=== PATIENT | male | born 1955 | race Hispanic/Latino ===

== ENCOUNTER 2016-06-16 20:44 | Inpatient (IN) ==
[2016-06-16] MEDS ORDERED: ZOFRAN ONE (21:17)
[2016-06-16] MEDS ORDERED: NS 1,000 ML ONE (21:17)
[2016-06-16 21:33] LABS: BE 2.4 mmoll (-3.0-3.0); BLOOD TYPE ARTERIAL; DRAW SITE R RADIAL; METHB 0.4 % (0.0-1.5); O2(CT) 18.8 mL/dL (15.0-23.0); PCO2(98.6) 38 mmHg (35-45); PO2(98.6) 61 mmHg (60-100); SAMPLE BLOOD; SAO2 93.2 % (95.0-100.0); THB 14.5 g/dL (11.5-17.4); pH(98.6) 7.45 (7.35-7.45)
--- NOTE | 2016-06-16 21:35 | EKG Report ---
Test Performed on : 06/16/2016 9:20:22 PM Test Reason : CHEST PAIN Blood Pressure : / mmHG Vent. Rate : 111 BPM Atrial Rate : 111 BPM P-R Int : 152 ms QRS Dur : 126 ms QT Int : 366 ms P-R-T Axes : 054 146 015 degrees QTc Int : 497 ms Sinus tachycardia. Right bundle branch block Abnormal ECG No previous ECGs available Unconfirmed Result
[2016-06-16 21:36] LABS: ALLEN TEST YES; MODALITY ROOM AIR
[2016-06-16] MEDS ORDERED: NS 1,000 ML IV ONE (21:37)
[2016-06-16] MEDS ORDERED: HUMULIN R DOSE (PARKWAY) IV ONE (21:37)
[2016-06-16] MEDS ORDERED: ZOFRAN IV ONE ×2 (21:37→21:59)
[2016-06-16 21:51] LABS: MANUAL DIFF NEEDED? NO
[2016-06-16 21:59] LABS: HEMATOCRIT 44.2 % (42.0-52.0); HEMOGLOBIN 15.2 g/dL (14.0-18.0); MCH 29.9 PG (27-31); RBC 5.08 XMIL (4.7-6.1)
[2016-06-16 22:00] LABS: BASO% 0.1 % (0.0-0.8); IMM GRAN# 0.03 X1000 (0.0-0.04); IMM GRAN% 0.2 % (0.0-0.5); LYMPH# 0.51 X1000 (1.2-3.4); LYMPH% 3.2 % (20.5-51.1); MCHC 34.4 g/dL (33-37); MONO# 0.02 X1000 (0.11-0.59); MONO% 0.1 % (1.7-9.3); MPV 10.5 FL (7.4-10.4); NEUT% 96.4 % (42.2-75.2); PLT 307 X1000 (130-400)
[2016-06-16 22:01] LABS: URINE SOURCE CLEAN CATCH
[2016-06-16 22:14] LABS: UR AMPHETAMINES QUAL NONE DETECTED (NONE DETECT); UR BARBITUATES QUAL NONE DETECTED (NONE DETECT); UR BENZODIAZEPIN QUAL NONE DETECTED (NONE DETECT); UR CANNABINOIDS QUAL NONE DETECTED (NONE DETECT); UR COCAINE QUAL NONE DETECTED (NONE DETECT); UR MDMA QUAL NONE DETECTED (NONE DETECT); UR METHADONE QUAL NONE DETECTED (NONE DETECT); UR METHAMPHETAMINE QUAL NONE DETECTED (NONE DETECT); UR OPIATES QUAL NONE DETECTED (NONE DETECT); UR OXYCODONE QUAL NONE DETECTED (NONE DETECT); UR PCP QUAL NONE DETECTED (NONE DETECT); UR TCA QUAL NONE DETECTED (NONE DETECT)
[2016-06-16 22:19] LABS: INR 0.88 (0.86-1.15); PROTIME 12.3 Seconds (12.1-15.5); PTT PL 21.4 Seconds (22.6-43.9)
[2016-06-16 22:24] LABS: ACETONE SERUM NEGATIVE (NEGATIVE)
[2016-06-16 22:25] LABS: AGAP 11; ALBUMIN 3.5 g/dL (3.5-5.0); ALKALINE PHOSPHATASE 198 U/L (32-122); BUN 19 mg/dL (8-22); CALCIUM 8.1 mg/dL (8.8-10.2); CHLORIDE 100 mmol/L (98-107); CK PROFILE 33 U/L (24-204); COSMO 287; GOT 46 U/L (10-34); GPT 58 U/L (10-44); MAGNESIUM 1.9 mg/dL (1.5-2.7); POTASSIUM 3.3 mmol/L (3.5-5.1); SODIUM 136 mmol/L (136-145); TCO2 25 mmol/L (25-35); TOTAL PROTEIN 5.9 g/dL (6.3-8.3)
[2016-06-16 22:36] LABS: BILIRUBIN URINE NEGATIVE (NEGATIVE); BLOOD URINE NEGATIVE (NEGATIVE); CLARITY CLEAR (CLEAR); COLOR YELLOW; LEUKOCYTES URINE TRACE (NEGATIVE); NITRITE URINE NEGATIVE (NEGATIVE); PH URINE 6.5; PROTEIN URINE 1+(30 mg/dL) mg/dL (NEGATIVE); UROBILINOGEN URINE NORMAL
[2016-06-16 22:41] LABS: URINE CULTURE PL NEEDED? YES; URINE EPITHELIAL CELLS <10 /HPF (<10); URINE WBC <10 /HPF (<10)
[2016-06-17] MEDS ORDERED: NS 1,000 ML IV ONE ×2 (00:31→20:47)
[2016-06-17] MEDS ORDERED: ZOFRAN IV PRN (00:31)
[2016-06-17] MEDS ORDERED: ZOSYN 3.375 GM/NS 3.375 GM/50 ML IVPB IV ONE (00:31)
--- NOTE | 2016-06-17 01:54 | ED EKG INTERP ---
This chart was entered by Kae Yin Scribe, acting as scribe for Yuriy Rm DO. EKG Interpretation - EKG Time of EKG reading by physician:: 21:20 EKG Read and Signed by:: Yuriy Rm EKG Interpretation (*Must complete 3 of following elements*): Abnormal Rate: 111 Rhythm: st [place]: normal QRS: RBB AR Interval: normal ST Wave: normal Attestation - Physician/ TAMRA Attestation The physician spent face to face time with patient:: Yes Advanced Practice Provider documentation review:: The physician spent face to face time with this patient and agrees with all MLP documentation, treatment, and medical decision making by the MLP. See provider notes for further information. This chart was documented by the indicated scribe, (Kae Yin Scribe) and accurately reflects the services I performed and decisions made by , Yuriy Rm DO, as attested by the provider's signature.
--- NOTE | 2016-06-17 01:55 | PROVIDER DOCUMENTATION ---
This chart was entered by Kae Yin Scribe, acting as scribe for Yuriy Rm DO. HPI-Abdominal Pain/GI Problem - General Chief Complaint: Nausea/Vomiting Stated Complaint: HIGH SUGAR/VOMITING Time Seen by Provider: 06/16/16 21:12 Source: patient, family Allergies/Adverse Reactions: Patient Allergies Allergy/AdvReac Type Severity Reaction Status Date / Time No Known Allergies Allergy Verified 06/16/16 20:50 - History of Present Illness-ABD Nature of Presenting Problems: PT IS A 60YOM PRESENTING TO THE ED C/O N/V/ABD PAIN. PT STATES HE BEGAN VOMITING AROUND 1700 THIS EVENING AND HAVING ABD PAIN. PT IS A DIABETIC AND HIS BLOOD SUGAR IS ABOVE 300 DUE TO VOMITING. NO DIARRHEA OR FEVER AT THIS TIME BUT PT IS LETHARGIC AND HAVING A HARD TIME STAYING AWAKE. NO OTHER COMPLAINTS AT THIS TIME Abdominal Pain Onset Location: reports: generalized abdomen Pain Radiation: reports: no radiation Quality of Pain: reports: aching Severity in ED: reports: moderate Onset/Duration: reports: 4-6 hours ago Timing: reports: still present Activities at Onset: reports: light activity Modifying Factors: improves with: nothing Associated Symptoms: reports: fatigue, malaise, nausea, vomiting, weakness. denies: constipation, diarrhea, shortness of breath, trouble walking Last BM: unsure Dark Stools Present?: reports: none noticed Rectal Bleeding: reports: none Rectal Pain: reports: none Emesis Description: reports: none Bruising or Bleeding Gums?: No Similar Symptoms Previously?: No Recently seen or treated by another doctor?: No Review of Systems - Adult - REVIEW OF SYSTEMS - ADULT Constitutional: reports: see HPI, fever, fatique. denies: chills Eyes: reports: no symptoms reported Ears, Nose, Mouth & Throat: reports: no symptoms reported Cardiovascular: reports: no symptoms reported Respiratory: reports: no symptoms reported Gastrointestinal: reports: see HPI, abdominal pain, nausea, poor appetite, vomiting. denies: constipation, diarrhea Genitourinary: reports: no symptoms reported Musculoskeletal: reports: no symptoms reported Integumentary: reports: no symptoms reported Neurological: reports: no symptoms reported Psychiatric: reports: no symptoms reported Endocrine: reports: no symptoms reported Hematologic/Lymphatic: reports: no symptoms reported Allergic/Immunologic: reports: no symptoms reported All Other Systems: Reviewed and Negative Past History - Adult - PAST MEDICAL HISTORY-ADULT Review of Records: reports: Old Records Reviewed, Nursing Assessment Review, Medications Reviewed, Social history reviewed & non-contributory. Major Childhood Illnesses: reports: denies history Cardiovascular: reports: denies history Respiratory: reports: denies history Gastrointestinal: reports: denies history Obstetrical/Gynecological: reports: denies history Genitourinary: reports: denies history Musculoskeletal: reports: denies history Neurological: reports: denies history Endocrine/Immune: reports: denies history Other Conditions: reports: denies history - IMMUNIZATION STATUS Childhood Immunizations: See Nurse Assessment Flu Vaccine: See Nurse Assessment - FAMILY HISTORY Family History: reviewed, not pertinent - SOCIAL HISTORY Smoking: denies, non-smoker Substance Use: none/never, denies Alcohol Use Frequency: never Living Situation: family Physical Exam-General - PHYSICAL EXAM-ADULT Initial Vital Signs Reviewed: Yes - CONSTITUTIONAL General Appearance: alert, moderate distress, thin, lethargic. negative: appears well, no apparent distress - EYES Eyes: PERRL/EOMI, pink conjunctivae, fundi clear, no AV nicking - HEAD, EARS, NOSE, MOUTH & THROAT HENMT: normocephalic/atraumatic, moist mucous membranes, normal ENT inspection, TMs normal, pharynx normal - NECK Neck: non-tender, full range of motion, supple, normal inspection - RESPIRATORY Respiratory: chest non-tender, lungs clear, normal breath sounds, no pleuratic chest pain, no respiratory distress, no accessory muscle use - CARDIOVASCULAR Cardiovascular: normal peripheral pulses, no edema, no gallop, no JVD, no murmur , tachycardia. negative: regular rate, rhythm - GASTROINTESTINAL (ABDOMEN) Abdominal Exam: normal bowel sounds, soft, no organomegaly, no pulsatile mass, tenderness. negative: non tender, guarding, rigid - LYMPHATIC Lymphatic: no adenopathy - MUSCULOSKELETAL Back Exam: normal inspection, no CVA tenderness, no vertebral tenderness Extremity: normal range of motion, non-tender, normal gait, normal inspection, no pedal edema, no calf tenderness, normal capillary refill, pelvis stable - SKIN Integumentary: normal color, normal turgor, warm/dry - NEUROLOGIC Neurologic: asbestos coverer II-XII nml as tested, grossly normal, no motor/sensory deficits - PSYCHIATRIC Psych/Mental Status: normal thought content, normal thought process, oriented x 3, depressed affect Progress - PLAN OF CARE/RESULTS Progress/Plan/Lab Results: Vital Signs - 8 hr 06/16/16 20:50 Temperature 99.6 F Pulse Rate 114 H Respiratory Rate 20 Blood Pressure 099/057 O2 Sat by Pulse Oximetry 96 Laboratory Results - last 24 hr 06/16/16 21:17 Specimen Type ARTERIAL Sample Site R RADIAL pH 7.45 pCO2 38 pO2 61 HCO3 26.6 H Base Excess 2.4 Oxyhemoglobin 92.1 L ABG O2 Sat (Calculated) 18.8 ABG O2 Saturation 93.2 L ABG Carboxyhemoglobin 0.80 ABG Methemoglobin 0.4 Jose Test YES A-a O2 Difference 41.0 Total Hemoglobin 14.5 Lactate 1.20 Blood Gas Modality ROOM AIR FiO2 % 21.0 Orders Category Date Time Status Cardiac Monitoring DIRECTED Care 06/16/16 21:15 Active FSBS [Finger Stick Blood Sugar (ED)] DIRECTED Care 06/16/16 20:58 Active Oxygen Therapy- ED Nursing DIRECTED Care 06/16/16 21:15 Active Saline Loc NOW Care 06/16/16 21:15 Active CHEST-2 VIEWS [RAD] Stat Exams 06/16/16 21:[address] ABD/PELVIS W/ IV CONT ONLY [CT] Stat Exams 06/16/16 21:28 Ordered ABG [RESP] Routine Lab 06/16/16 21:17 Completed ACETONE SERUM [CHEM] Stat Lab 06/16/16 21:16 Ordered ALCOHOL BLOOD Stat Lab 06/16/16 21:16 Ordered CBC WITH ELECTRONIC DIFF [HEME] Stat Lab 06/16/16 21:15 Ordered CK PROFILE [SP CHEM] Stat Lab 06/16/16 21:15 Ordered COMPREHENSIVE METABOLIC PANEL [CHEM] Stat Lab 06/16/16 21:15 Ordered LACTATE, PLASMA [CHEM] Stat Lab 06/16/16 21:16 Ordered LIPASE [CHEM] Stat Lab 06/16/16 21:29 Ordered MAGNESIUM [CHEM] Stat Lab 06/16/16 21:15 Ordered MAGNESIUM [CHEM] Stat Lab 06/16/16 21:16 Ordered PRO B-NATRIURETIC PEPTIDE Stat Lab 06/16/16 21:[address]IME WITH INR PL [COAG] Stat Lab 06/16/16 21:[address] [COAG] Stat Lab 06/16/16 21:15 Ordered TROPONIN T Stat Lab 06/16/16 21:[address] W/POSS RFLX CULT [URINALYSIS] Stat Lab 06/16/16 21:29 Ordered URINE DRUG SCREEN PL Stat Lab 06/16/16 21:16 Uncollected phos [PHOSPHORUS] [CHEM] Stat Lab 06/16/16 21:16 Ordered 0.9% Sodium Chloride Inj [Ns] 1,000 ml Med 06/16/16 21:17 Discontinued .ROUTE As Directed Ondansetron [Zofran] Med 06/16/16 21:17 Discontinued 4 mg .ROUTE .STK-MED ONE EKG [EKG] Stat Ther 06/16/16 21:15 Draft Result Diagrams: 06/16/16 21:05 06/16/16 21:05 - CT/MRI 1 CT Study: Abdomen (dilation of common bile duct. this could be secondary to sphincter mass versus choledochlithiasis. recommend further investigation) - CONSULTS/PCP/HOSPITALIST Notification #1 *Consult/PCP/Hospitalist*: DR CARRASCO Time Discussed: 00:39 Reason/Comments: ACCEPTED PT TO [facility] FOR FURTHER EVAL OF GALLBLADDER Consult Disposition: Admit Departure - Departure Time of Disposition Decision: 00:40 DIAGNOSIS: Choledocholithiasis with acute cholecystitis Disposition: ADMITTED INPATIENT 09 Certified Medical Emergency: Emergent Condition: Stable Referrals and Follow-Ups: None,PCP [Primary Care Provider] - Attestation - Physician/ TAMRA Attestation The physician spent face to face time with patient:: Yes Advanced Practice Provider documentation review:: The physician spent face to face time with this patient and agrees with all MLP documentation, treatment, and medical decision making by the MLP. See provider notes for further information. This chart was documented by the indicated scribe, (Kae Yin Scribe) and accurately reflects the services I performed and decisions made by me, Yuriy Rm DO, as attested by the provider's signature.
--- NOTE | 2016-06-17 06:29 | HISTORY AND PHYSICAL ---
HISTORY OF PRESENT ILLNESS: A 60-year-old, male presenting to the ER with complaints of nausea, vomiting, and abdominal pain. He started vomiting in the evening prior to presentation and had abdominal pain. He is a diabetic and his blood sugar was running above 300 due to vomiting and had no diarrhea or fever at home, but the patient has apparently been lethargic and had a hard time staying awake. He does report the pain is in the right upper quadrant described as aching. He says it is only minimal at this time. Family is at the bedside and able to translate for me without difficulty. PAST MEDICAL HISTORY: Diabetes. PAST SURGICAL HISTORY: None. SOCIAL HISTORY: Nonsmoker. ALLERGIES: No known allergies. MEDICATIONS: Family unable to provide a list. The patient unable to provide list. FAMILY HISTORY: Reviewed with patient, but noncontributory. REVIEW OF SYSTEMS: A full 10 point review of systems obtained, negative except as specified in HPI. PHYSICAL EXAMINATION: VITAL SIGNS: Patient is currently afebrile. Temperature 98.5, his temperature maximum 100.3, heart rate 99, respiratory rate nonlabored at 18, blood pressure 90/48, O2 saturation 94% on room air. GENERAL: In no acute distress but somewhat lethargic, but will respond to questions and wake up. HEENT: Normocephalic, atraumatic. Pupils equal, round, reactive to light. Some mild scleral icterus noted. Mucous membranes moist. Oropharynx benign. NECK: Supple. Trachea midline. CARDIOVASCULAR: Regular rate and rhythm. LUNGS: Grossly clear. ABDOMEN: Soft, nondistended. Some mild tenderness to palpation in the right upper quadrant. Questionably positive Rey's sign. No peritonitis. EXTREMITIES: Moves all extremities. NEUROLOGIC: Grossly intact but lethargic. SKIN: Questionable jaundice, but difficult to fully determine given patient's skin color. VASCULAR: All extremities perfused. LABORATORY: His current a.m. labs are pending but from late last night or this morning his white blood cell count was 15, bilirubin was 3.3, alkaline phosphatase is 198, glucose was 206. CT scan independently reviewed and radiology report reviewed. Patient does have what appears to be a distended biliary tree. There are questionable calcifications noted at what looks like the ampulla suggestive potentially of choledocholithiasis. His gallbladder does not seem to have obvious stones on CT scan at this time. ASSESSMENT AND PLAN: A 60-year-old, gentleman with possible choledocholithiasis. 1. Possible choledocholithiasis. At this time, we will repeat his labs and will likely benefit from a laparoscopic cholecystectomy with cholangiogram. We will repeat his labs and see if he needs potentially an ERCP first. 2. Multiple medical comorbidities. We will ask the hospitalist service to see and evaluate the patient for medical management of his diabetes. cc: Chucky Nunez MD
--- NOTE | 2016-06-17 06:48 | Diag Imaging Result Document ---
PROCEDURE NAME: CT ABD/PELVIS W/ IV CONT ONLY - 06/16/2016 CT ABDOMEN AND PELVIS WITH ORAL AND INTRAVENOUS CONTRAST: TECHNIQUE: Dose-reduction protocol. FINDINGS: Normal spleen and adrenal glands. The common bile duct is markedly dilated measuring up to 15 mm. The gallbladder is distended and there are adjacent inflammatory changes. No calcified stones. No pancreatic mass identified and no adjacent inflammation about the pancreas. No focal hepatic abnormality. Normal enhancement of the kidneys. No hydronephrosis. Normal aorta. No bowel obstruction. Normal appendix. No abscess. The urinary bladder is moderately distended and appears normal. No free air. Longstanding arthritic changes to both hips. Findings much more pronounced on the right where there is remodeling of the femoral head and acetabulum, as well as superior migration of the acetabulum. IMPRESSION: Cholecystitis with a dilated common bile duct which could be secondary to a mass at the sphincter of Oddi (although no definite mass is seen) versus choledocholithiasis. A preliminary report was given at 11:30 p.m. MTDD
--- NOTE | 2016-06-17 08:00 | Diag Imaging Result Document ---
PROCEDURE NAME: CHEST-2 VIEWS - 06/16/2016 TWO VIEWS OF THE CHEST: FINDINGS: There is apparent COPD. There are calcified nodes in both barry. Heart size and pulmonary vascularity are within normal limits. There are no previous studies. IMPRESSION: COPD.
[2016-06-17] MEDS: ZOSYN 3.375 GM/NS 3.375 GM/50 ML IVPB IV SCH ×3 (08:04→20:31)
[2016-06-17 10:49] LABS: HEMOGLOBIN 14.1 g/dL (14.0-18.0); MCH 30.1 PG (27-31); MCHC 34.4 g/dL (33-37); MCV 87.4 FL (81-99); MPV 10.4 FL (7.4-10.4); RBC 4.69 XMIL (4.7-6.1)
[2016-06-17 11:15] LABS: AMYLASE 65 U/L (20-200); HDL 63 mg/dL (35-55); LDL 63 mg/dL; LIPASE 17 U/L (13-60); MAGNESIUM 1.6 mg/dL (1.5-2.7); TRIGLYCERIDES 143 mg/dL (39-160); VLDL 29 mg/dL
[2016-06-17] MEDS ORDERED: ZOFRAN ONE ×2 (11:15→13:30)
[2016-06-17 11:16] LABS: AGAP 15; ALKALINE PHOSPHATASE 222 U/L (32-122); BUN 19 mg/dL (8-22); CALCIUM 7.6 mg/dL (8.8-10.2); CHLORIDE 102 mmol/L (98-107); COSMO 289; GOT 94 U/L (10-34); GPT 92 U/L (10-44); POTASSIUM 3.3 mmol/L (3.5-5.1); SODIUM 140 mmol/L (136-145); TCO2 23 mmol/L (25-35); TOTAL BILIRUBIN 4.33 mg/dL (0.20-1.00); TOTAL PROTEIN 5.3 g/dL (6.3-8.3)
[2016-06-17] MEDS ORDERED: ROBINUL ONE ×2 (11:16→13:30)
[2016-06-17] MEDS ORDERED: PEPCID ONE (11:16)
[2016-06-17 11:18] LABS: HEMOGLOBIN A1C 12.7 % (4.8-6.0)
[2016-06-17] MEDS ORDERED: XYLOCAINE 1%/EPI 1:100,000 ONE (11:18)
[2016-06-17] MEDS ORDERED: LR 1,000 ML ONE ×2 (11:19→13:30)
[2016-06-17] MEDS ORDERED: MARCAINE 0.25% PF ONE (11:19)
[2016-06-17] MEDS ORDERED: SODIUM CHLORIDE 0.9% ONE (11:28)
[2016-06-17] MEDS: HUMALOG SUBQ SCH ×3 (11:29→20:31)
[2016-06-17 11:59] LABS: FREE T4 1.59 ng/dL (0.93-1.70)
--- NOTE | 2016-06-17 12:55 | Diag Imaging Result Document ---
PROCEDURE NAME: OPERATIVE CHOLANGIOGRAM - 06/17/2016 INTRAOPERATIVE CHOLANGIOGRAM: COMPARISON: None available. FINDINGS: Two spot fluoroscopic images of the opacified common bile duct were provided, which was performed intraoperatively during cholecystectomy by Dr. Chucky Nunez. The common bile duct is dilated similar to a recent prior CT. There is a filling defect at the distal common bile duct suggesting an obstructing lesion such as a stone or possible ductal or periductal mass. IMPRESSION: As above. Please correlate with live fluoroscopic imaging.
--- NOTE | 2016-06-17 12:58 | CONSULTATION ---
DATE OF CONSULTATION: 06/17/2016 HISTORY OF PRESENT ILLNESS: The patient was admitted I think early this morning per Dr. Nunez. A 60-year-old who presented to the emergency room complaining of nausea, vomiting, and abdominal pain. Started vomiting in the evening prior to presentation and had abdominal pain. He is diabetic. Blood sugars running above 300 due to vomiting. He had no diarrhea or fever at home but the patient apparently had been lethargic and has a hard time staying awake. Does report pain in right upper quadrant, described as aching, only minimal at the time of presentation. PAST MEDICAL HISTORY: Diabetes mellitus type 2. ALLERGIES: No known drug allergies. ASSESSMENT AND PLAN: The patient was admitted. A CT scan independently reviewed by Dr. Nunez and radiologist reviewed. Does have what appears to be distended biliary tree, questionable calcifications noted. Looks like ampulla, suggestive of potentially choledocholithiasis. Gallbladder does not seem to have obvious stone on the CT scan at that time. 1. Possible cholelithiasis. Admitted. Will likely benefit from laparoscopic cholecystectomy. Needs potentially endoscopic retrograde cholangiopancreatography first. We will continue intravenous fluids. He is on Zosyn 3.375 mg intravenous every 6. He is on some pain medicine, morphine. Follow his blood counts well. 2. Diabetes mellitus type 2. We will follow blood sugars. I do want to see what his electrolytes and liver functions are. cc: MD Chucky Mckay MD
[2016-06-17] MEDS ORDERED: FENTANYL ONE (13:12)
[2016-06-17] MEDS ORDERED: DIPRIVAN 1% ONE (13:13)
[2016-06-17] MEDS ORDERED: VERSED ONE (13:13)
[2016-06-17] MEDS ORDERED: NEOSTIGMINE ONE (13:29)
[2016-06-17] MEDS ORDERED: NEO-SYNEPHRINE ONE (13:30)
[2016-06-17] MEDS ORDERED: DECADRON ONE (13:30)
[2016-06-17] MEDS ORDERED: ZEMURON ONE (13:30)
[2016-06-17] MEDS ORDERED: QUELICIN (DOSE) ONE (13:30)
[2016-06-17] MEDS ORDERED: XYLOCAINE-MPF 2% ONE (13:30)
--- NOTE | 2016-06-17 14:14 | OPERATIVE NOTE ---
PROCEDURE DATE: 06/17/2016 PREOPERATIVE DIAGNOSIS: Common bile duct obstruction. POSTOPERATIVE DIAGNOSIS: Common bile duct obstruction. PROCEDURE PERFORMED: Laparoscopic cholecystectomy with cholangiogram. SURGEON: Chucky Nunez MD EARTH BURNER: Finn Cruz MD, who assisted with the entirety of the procedure with retraction and dissection. ANESTHESIA: General orotracheal. INTRAOPERATIVE FINDINGS: Edematous gallbladder with distal common bile duct obstruction versus stone noted on cholangiogram. Very dilated common bile duct. Very short cystic duct. COMPLICATIONS: None at the time of dictation. ESTIMATED BLOOD LOSS: 20 mL. SPECIMENS REMOVED: Gallbladder. DRAINS: A 19-Faroese drain from the most lateral trocar site. HISTORY: The patient is a 60-year-old male, presenting with right upper quadrant pain and mild jaundice. He was found to have, on CT scan, distal common bile duct obstruction. It was felt that this potentially originated from his gallbladder. The risks, benefits, and alternatives of the procedure were discussed. All questions were answered. DESCRIPTION OF PROCEDURE: After informed consent was obtained, the patient was brought to the operating theater and transferred to the operating table, and placed in supine position. General orotracheal anesthesia was then performed without complication. A formal time-out was then performed, confirming patient, date, and procedure. All were in agreement. At that time, attention was given to the abdomen. An infraumbilical incision was made, through which, using Optiview technique, we inserted an 11 mm trocar and connected it to insufflation. A pneumoperitoneum was achieved. Under direct visualization, we placed 3 more trocars, all 5 mm, 1 subxiphoid and 2 in the right upper quadrant. Using these, the gallbladder was identified and retracted cephalad. It was very edematous and had multiple adhesions around it suggesting a probably chronic process. We were able to dissect out the cystic duct. It was very short but dilated. We placed 1 clip on the gallbladder side. We made a ductotomy. We were able to pass a cholangiogram catheter into the common bile duct. We shot a cholangiogram, which showed a very distal obstruction and dilated common bile duct. We were able to see the left and right biliary tree intrahepatically. We then removed the cholangiogram catheter and doubly clipped the cystic duct. Given its short and large diameter, we also placed 2 interloops around it with good results. We also dissected out the cystic artery and doubly clipped and ligated it. We then dissected the gallbladder off the gallbladder fossa using electrocautery. We placed it into an endobag and brought it out through the infraumbilical incision. We then turned our attention to irrigating the abdomen. We irrigated out copiously with normal saline. We looked at the clips. They were in good position. No active drainage of bile and no bleeding. Given the short cystic duct and the concern of potential cystic duct leak given the pressure, we left a drain tunneled from the most lateral trocar site. We placed it into the gallbladder fossa and secured it in place in the standard fashion. We then closed the infraumbilical incision with a 0 Vicryl and Cali-Merlin device. We removed all trocars, disconnected insufflation, and the pneumoperitoneum was released. All skin incisions were closed with 4-0 Monocryl. The patient tolerated procedure well and was transferred to the recovery room in stable condition. Postoperatively, we will consult Dr. Pink for possible ERCP in the morning. cc: Chucky Nunez MD
[2016-06-17] MEDS: NS 500 ML IV SCH (18:07)
[2016-06-17] MEDS: PERIDEX MT SCH (20:31)
[2016-06-17] MEDS ORDERED: NS 1,000 ML IV SCH (20:47)
[2016-06-17] MEDS: NS 1,000 ML IV SCH (22:54)
[2016-06-18] MEDS: ZOSYN 3.375 GM/NS 3.375 GM/50 ML IVPB IV SCH (03:39)
[2016-06-18] MEDS: NS 500 ML IV SCH ×2 (05:23→12:24)
[2016-06-18 05:52] LABS: HEMATOCRIT 33.6 % (42.0-52.0); HEMOGLOBIN 11.4 g/dL (14.0-18.0); MCH 30.1 PG (27-31); MCHC 33.9 g/dL (33-37); MCV 88.7 FL (81-99); MPV 12.3 FL (7.4-10.4); RBC 3.79 XMIL (4.7-6.1)
[2016-06-18 06:47] LABS: ALBUMIN 1.9 g/dL (3.5-5.0); CALCIUM 6.8 mg/dL (8.8-10.2); POTASSIUM 3.1 mmol/L (3.5-5.1); TOTAL BILIRUBIN 4.39 mg/dL (0.20-1.00); TOTAL PROTEIN 4.1 g/dL (6.3-8.3)
[2016-06-18] MEDS: HUMALOG SUBQ SCH ×4 (06:56→20:44)
--- NOTE | 2016-06-18 07:45 | PROGRESS NOTE ---
DATE: 06/18/2016 SUBJECTIVE: The patient did well and says his pain is better. OBJECTIVE: Vital Signs: Patient's current temperature is 100.5 degrees, pulse is 96, respiratory 14, blood pressure is recorded at 61/40. His previous one was 142/87; the nurse is currently rechecking. General: No acute distress. Lungs grossly clear. Abdomen soft, appropriately tender. LABORATORY: His white blood cell count is 9. CMP is currently pending. ASSESSMENT AND PLAN: A 60-year-old, male, status post laparoscopic cholecystectomy with retained common bile duct stone. 1. Hypotension. At this time, the patient is to have his blood pressure manually rechecked. I will follow up with the nurse. He may need fluid bolus. He does not look overall sick but we may need to consider transfer if his blood pressure still remains low. 2. Common bile duct stone. At this time, GI has been consulted. We will follow up with their recommendation. He will likely need an endoscopic retrograde cholangiopancreatography. cc: Chucky Nunez MD
[2016-06-18] MEDS: NS 1,000 ML IV SCH ×2 (08:40→15:14)
[2016-06-18] MEDS: MERREM 1 GM in NS 50 ML IV SCH ×2 (10:15→16:32)
[2016-06-18] MEDS: PERIDEX MT SCH ×2 (12:23→20:41)
--- NOTE | 2016-06-18 12:29 | CONSULTATION ---
DATE OF CONSULTATION: 06/18/2016 REASON FOR CONSULTATION: Cholelithiasis, ERCP. HISTORY OF PRESENT ILLNESS: This is a 60-year-old male who presented to the emergency room with nausea, vomiting and abdominal pain. He is a diabetic and had elevated blood sugar. He also has been lethargic and sleeping a lot at home. He was brought in to the hospital, and an abdominal CT scan on 06/16/2016 showed cholecystitis with dilated common bile duct. A cholecystectomy was performed on 06/17/[address] Nunez. Findings were consistent with common bile duct obstruction. He has a short cystic duct. He had a PATRICIO drain placed. The patient currently reports mild postoperative abdominal pain. He is being held n.p.o. at present time for ERCP procedure. PAST MEDICAL HISTORY: Diabetes. PAST SURGICAL HISTORY: Laparoscopic cholecystectomy on 06/17/[address] Nunez. SOCIAL HISTORY: Negative for tobacco. ALLERGIES: No known drug allergies. MEDICATIONS: Currently unobtainable per chart. REVIEW OF SYSTEMS: Per HPI. PHYSICAL EXAMINATION: Vital signs: Temperature is 98.3, pulse 96, respirations 18, blood pressure 96/60. General: The patient is awake and alert, no acute distress. Exam and interview has been done with any telehealth coordinator. HEENT: Normocephalic. Pupils are equal, round and reactive to light. Some mild scleral icterus noted. Cardiovascular: Regular rate and rhythm. Abdomen: Soft. Laparoscopic incision is intact, and he has a PATRICIO drain in place. Extremities: No lower extremity edema noted. Pedal pulses present bilaterally. DIAGNOSTIC DATA: Hematology shows white count of 9.88, hemoglobin 11.4, hematocrit 33.6, MCV is 88.7, platelets 89. Coagulation shows ProTime 12.3, INR of 0.88, PTT of 21.4. Chemistry shows sodium 144, potassium 3.1, chloride 110, CO2 is 20, BUN is 29, creatinine 1.4, glucose 158. Recent cholecystectomy on 06/17/2016. During surgery, the gallbladder was very edematous and had multiple adhesions suggesting probable chronic process. Cystic duct was very short. A clip was placed. Cholangiogram showed a very distal obstruction and dilated common bile duct. ASSESSMENT: 1. Elevated liver function tests, elevated bilirubin. 2. Recent laparoscopic cholecystectomy with abnormal cholangiogram. 3. Diabetes. 4. Hypotension. PLAN: Continue supportive care and allow him to have clear liquids as tolerated today and place n.p.o. after midnight for ERCP procedure tomorrow. I have gone over the procedure along with the benefits and risks of the procedure through an telehealth coordinator. The telehealth coordinator's name is Dwayne Osorio. Tempering Machine Operator number is [id number]. All of the patient's questions along with family member's questions were answered, and they voiced understanding and wished to proceed with the procedure. Further plans will be made according to findings. I have discussed this case with Dr. Pink. Dictated by MAHAMED Liao for Ivan Pink MD cc: MAHAMED Gonzalez MD Matthew L. Figh, MD
--- NOTE | 2016-06-18 15:19 | PROGRESS NOTE ---
DATE: 06/18/2016 SUBJECTIVE: Today Mr. Gold referred to be doing fine. He continues to have remarkable abdominal discomfort. OBJECTIVE: Vital signs: Blood pressure is 90/70, pulse of 93, respiration is 18, temperature is 98.3 degrees. Of note, patient had a mild temperature of 100.5 degrees early on today. Blood pressures continues to be on the lower end. General Examination: Mr. Gold is a 60-year-old male. He is in bed, seems to be in some painful distress. HEENT: Mucosa is pink and moist, slightly icteric. Chest: Good air entry bilateral. Cardiovascular: Regular rate and rhythm. Abdomen: Soft, tender all over, more so on the right upper quadrant. There is a PATRICIO drain in place. Extremities: No pedal edema. MANAGER DIVISION: Patient is alert and oriented x4. There is no focal neurological deficit. LABORATORY DATA: WBC is 9.88, hemoglobin is 11.4, platelet count of 89,000. Chemistry: Sodium is 144, potassium is 3.0, chloride is 110, creatinine is 14, BUN is 29, calcium dropped to 6.8. AST is down to 77, ALT is down to 86. ASSESSMENT: 1. Ascending cholangitis. 2. Cholelithiasis status post laparoscopic cholecystectomy. 3. Possible stone in the CBD. Patient has been evaluated by Gastroenterology and patient is pending ERCP tomorrow. 4. Diabetes mellitus. 5. Acute kidney injury. I think this is multifactorial including dehydration as well as medication side effects. I have discontinued the vancomycin. In general, I think Mr. Gold is critically sick but he is stable. I will discontinue the vancomycin since we think the source of the infection is from the CBD. We will cover more actively gram negatives, more concerned of possible ESBL, I have therefore discontinued Zosyn and switched the patient to carbapenem. And I have also increased the rate on the normal saline to 150 mL/h for 24 hours to try and perfuse the kidneys. 6. Hypotension, likely related to the sepsis. We will keep a very close eye. If this continues to be a problem we will transfer the patient to the ICU. cc: MD Chucky Rayo MD MTDD
[2016-06-18] MEDS: MORPHINE IV PRN (20:42)
[2016-06-19] MEDS: NS 1,000 ML IV SCH ×2 (01:12→05:18)
[2016-06-19] MEDS: MERREM 1 GM in NS 50 ML IV SCH ×3 (01:12→18:39)
--- NOTE | 2016-06-19 06:36 | PROGRESS NOTE ---
DATE: 06/19/2016 SUBJECTIVE: Patient doing well. Reports minimal pain at this point. OBJECTIVE: Vital Signs: Patient is currently afebrile. His vital signs have been stable. General: No acute distress. Lungs: Grossly clear. Cardiovascular: Regular rate and rhythm. Abdomen: Soft, appropriately tender. Some mild tenderness in right upper quadrant. PATRICIO is in place with no bilious output. LABORATORY: Currently pending. His bilirubin yesterday was 4.39. Microbiology: He did have gram-negative rods in his blood. ASSESSMENT AND PLAN: A 60-year-old gentleman with possible ascending cholangitis with common bile duct obstruction status post laparoscopic cholecystectomy. 1. Cholangitis: At this time, patient is scheduled for an endoscopic retrograde cholangiopancreatography. He is on antibiotics. His bacteremia is likely related to his cholangitis. He is clinically stable. We will followup with endoscopic retrograde cholangiopancreatography. If they are unable to retrieve the stone, may need to do open common bile duct exploration. 2. Status post cholecystectomy: At this time, patient seems to be healing well. We will follow up with endoscopic retrograde cholangiopancreatography results. 3. Multiple medical comorbidities: Being managed by the hospitalist service. cc: Chucky Nunez MD
[2016-06-19] MEDS: HUMALOG SUBQ SCH ×4 (06:50→22:13)
[2016-06-19 07:01] LABS: ALBUMIN 1.7 g/dL (3.5-5.0); CALCIUM 7.3 mg/dL (8.8-10.2); POTASSIUM 3.3 mmol/L (3.5-5.1); TOTAL BILIRUBIN 3.16 mg/dL (0.20-1.00); TOTAL PROTEIN 4.9 g/dL (6.3-8.3)
[2016-06-19 07:04] LABS: BASO% 0.1 % (0.0-0.8); EOS# 0.01 X1000 (0.0-0.7); EOS% 0.1 % (0.0-10.0); HEMOGLOBIN 10.5 g/dL (14.0-18.0); IMM GRAN# 0.02 X1000 (0.0-0.04); IMM GRAN% 0.2 % (0.0-0.5); LYMPH# 0.61 X1000 (1.2-3.4); MANUAL DIFF NEEDED? YES; MCH 30.3 PG (27-31); MCHC 33.9 g/dL (33-37); MCV 89.3 FL (81-99); MONO# 0.18 X1000 (0.11-0.59); MONO% 1.8 % (1.7-9.3); MPV 12.4 FL (7.4-10.4); NEUT% 91.8 % (42.2-75.2); PLT 76 X1000 (130-400); RBC 3.47 XMIL (4.7-6.1)
[2016-06-19 08:02] LABS: BANDS 14 % (0-1); LYMPHS 4 % (21-51)
[2016-06-19] MEDS: PERIDEX MT SCH ×2 (08:28→22:11)
[2016-06-19] MEDS: D5 1/2 NS 1,000 ML IV SCH ×2 (09:39→22:10)
[2016-06-19] MEDS ORDERED: KETAMINE (DOSE) ONE (12:13)
[2016-06-19] MEDS ORDERED: DIPRIVAN 1% 500 MG/50 ML BOTTLE ONE (12:13)
[2016-06-19] MEDS ORDERED: FENTANYL ONE (12:23)
--- NOTE | 2016-06-19 15:37 | PROGRESS NOTE ---
DATE: 06/19/2016 SUBJECTIVE: Today Mr. oGld refers to be doing a lot better. He feels a whole lot stronger than yesterday. Continues to have some mild abdominal discomfort. OBJECTIVE: Vital signs: His vitals, blood pressure is 160/92, pulse is 70. Respirations 16, temperature 98.2 degrees. General: Mr. Gold is a 60-year-old male. He was in bed. Not in any distress. HEENT: Mucosa is pink and moist. Anicteric. Acyanotic. Neck: Supple. Chest: Good air entry bilateral. I did not appreciate any crepitations or transmitted sounds. Cardiovascular: Regular rate and rhythm. No murmurs. Abdomen: Soft, is mildly tender, mostly in the right upper quadrant. There is a PATRICIO drain in place. Bowel sounds were present. Extremities: No pedal edema. LAB SYSTEMS ANALYST: Patient is alert and oriented x4. There is no focal neurological deficit. LABORATORY DATA: WBC is down to 10.19, hemoglobin is slightly reduced to 10.5, platelet count is also down to 76,000, there is 14% of bands. Sodium is 143, potassium is 3.3, chloride is 110, creatinine is 1.4. Calcium is slightly improved to 7.3, AST is down to 42, ALT is down to 68, alkaline phosphatase went up slightly, but total bilirubin is also slightly down to 3.16. Of note, the patient has been afebrile since yesterday at 441. ASSESSMENT: 1. Ascending cholangitis. The patient is currently on carbapenem, seems to be doing remarkably fine. Blood pressure is stable and he continues to be afebrile. 2. Cholelithiasis. Status post laparoscopic cholecystectomy. 3. Dilated common bile duct with possible stone. Patient is pending endoscopic retrograde cholangiopancreatography today. 4. Acute kidney injury. Creatinine is stable. Patient is making adequate urine. We will continue with the intravenous hydration. 5. Hyperchloremia. This is likely due to the infusion of normal saline. We will change this to D5 with half saline. 6. Severe sepsis. Patient has thrombocytopenia, has 14% of bands, was hypotensive. We think this is all is driven by the cholangitis. We will continue with the current antibiotic coverage. 7. Escherichia coli bacteremia, 2 out of 2 blood cultures positive for Escherichia coli, which I think is coming from the biliary tree. Luckily, this is not extended-spectrum beta-lactamase; however, we will continue with the current carbapenem and we will repeat blood culture for tomorrow to make sure there is a negative blood culture before we discharge the patient. cc: MD Chucky Rayo MD
[2016-06-19] MEDS ORDERED: D5 ONE (18:05)
[2016-06-19] MEDS ORDERED: 1/4 NS ONE (18:05)
--- NOTE | 2016-06-20 03:27 | OPERATIVE NOTE ---
PROCEDURE DATE: 06/17/2016 PROCEDURE PERFORMED: Endoscopic retrograde cholangiopancreatography, sphincterotomy, and stone extraction. PREOPERATIVE DIAGNOSIS: Choledocholithiasis, status post laparoscopic cholecystectomy. POSTOPERATIVE DIAGNOSIS: Choledocholithiasis, evidence of cholecystectomy. MEDICATION USED: MAC as per Anesthesia. SCOPE USED: Olympus duodenoscope. HISTORY: This is a 60-year-old, gentleman admitted to the hospital with symptomatic gallbladder disease. He underwent laparoscopic cholecystectomy which revealed a filling defect in the distal common bile duct. ERCP was done for stone extraction. DESCRIPTION OF PROCEDURE: Informed consent was obtained from the patient through an animal anatomist. The risks, benefits, and alternatives were explained. Risks of, but not limited to bleeding, perforation, aspiration, pneumonia, and pancreatitis were explained. He understood. All his pertinent questions were answered. Patient was brought to the endoscopy unit and was premedicated as per Anesthesia. After adequate sedation, while he was lying in the left lateral position, the duodenoscope was introduced into the posterior pharynx and advanced manually into the esophagus. Through the esophagus, it was advanced to the stomach. The stomach was insufflated. There was a small amount of gastric content noted which was suctioned out. The pylorus was identified. Scope was then passed through the pylorus, into the duodenal bulb, and then 2nd part duodenum where the major papilla was identified. Using the sphincterotome with the help of a guidewire, the common bile duct was preferentially cannulated. Contrast injected, cholangiogram obtained which revealed to have a normal size common bile duct but there was about an 8 mm, oval-shaped filling defect in the distal common bile duct. There was evidence of clips at the cystic duct from his cholecystectomy. Otherwise, intrahepatic and extrahepatic ducts appeared to be of normal size. At this point, I went ahead and proceeded with the sphincterotomy. After adequate sphincterotomy, I used a 4 wire basket and grasped the stone. It was removed without any difficulty. This stone appeared to be soft and dark brown in color, oval-shaped, about 8 mm in size. After that, I went and proceeded with the procedure with swiping the common bile duct a few more times with the balloon and no further stones were found. I proceeded with occlusion cholangiogram. It did not reveal any further filling defects. Good drainage was noted. The scope was then removed. Patient tolerated the procedure well. No complications were noted. Patient was then transferred to the recovery area in a stable condition. IMPRESSION: Choledocholithiasis, stone removed after sphincterotomy. RECOMMENDATION: I will continue to observe him in the hospital. Recheck labs and recheck his vitals. Once stabilized, he can be discharged as per surgery. Follow up with me in the office as needed. cc: MD Chucky Angel MD
[2016-06-20] MEDS: D5 1/2 NS 1,000 ML IV SCH ×3 (04:07→15:38)
[2016-06-20] MEDS: MERREM 1 GM in NS 50 ML IV SCH ×3 (04:24→22:20)
[2016-06-20 06:02] LABS: MANUAL DIFF NEEDED? NO
--- NOTE | 2016-06-20 06:11 | PROGRESS NOTE ---
DATE: 06/20/2016 SUBJECTIVE: Patient underwent ERCP. Had a large stone removed. He is currently doing okay. No major issues. OBJECTIVE: Vital Signs: Patient is currently afebrile. His vital signs have been stable. General: No acute distress. Lungs: Grossly clear. Cardiovascular: Regular rate and rhythm. Abdomen: Soft, appropriately tender. The right upper quadrant PATRICIO drain is in place with no bilious output. LABORATORY: Currently pending. ASSESSMENT AND PLAN: A 60-year-old gentleman with a possible ascending cholangitis with common bile duct stone status post laparoscopic cholecystectomy and endoscopic retrograde cholangiopancreatography with stone removal. Cholangitis. At this time patient's has already undergone an endoscopic retrograde cholangiopancreatography and he has had a stone removed. This should improve his clinical status. He is on antibiotics. I suspect his bacteremia is related to his cholangitis. He is clinically stable. I think from a surgical point of view, as long as we keep him on antibiotics, he could potentially be discharged home. I will defer which antibiotics to the Hospitalist Service, but I suspect he can be discharged here in the next day or 2 if okay with other services. cc: Chucky Nunez MD
[2016-06-20 06:23] LABS: AGAP 11; ALBUMIN 1.7 g/dL (3.5-5.0); ALKALINE PHOSPHATASE 196 U/L (32-122); BUN 36 mg/dL (8-22); CALCIUM 7.4 mg/dL (8.8-10.2); CHLORIDE 109 mmol/L (98-107); COSMO 299; GOT 18 U/L (10-34); GPT 48 U/L (10-44); POTASSIUM 3.4 mmol/L (3.5-5.1); SODIUM 140 mmol/L (136-145); TCO2 20 mmol/L (25-35); TOTAL BILIRUBIN 2.76 mg/dL (0.20-1.00); TOTAL PROTEIN 4.9 g/dL (6.3-8.3)
[2016-06-20 06:24] LABS: EOS# 0.03 X1000 (0.0-0.7); EOS% 0.4 % (0.0-10.0); HEMATOCRIT 30.1 % (42.0-52.0); HEMOGLOBIN 10.2 g/dL (14.0-18.0); IMM GRAN# 0.04 X1000 (0.0-0.04); IMM GRAN% 0.6 % (0.0-0.5); LYMPH# 0.74 X1000 (1.2-3.4); LYMPH% 10.8 % (20.5-51.1); MCH 30.1 PG (27-31); MCHC 33.9 g/dL (33-37); MCV 88.8 FL (81-99); MONO# 0.22 X1000 (0.11-0.59); MONO% 3.2 % (1.7-9.3); MPV 12.7 FL (7.4-10.4); PLT 69 X1000 (130-400); RBC 3.39 XMIL (4.7-6.1)
[2016-06-20] MEDS: HUMALOG SUBQ SCH ×4 (06:33→22:50)
[2016-06-20] MEDS ORDERED: INDOCIN ONE (06:54)
--- NOTE | 2016-06-20 07:50 | Diag Imaging Result Document ---
PROCEDURE NAME: ERCP-BILIARY AND PANCREATIC - 06/19/2016 ERCP: COMPARISON: 06/17/2016, 06/16/2016. FINDINGS: The exam was performed by the patient's endoscopist. Injection of the common bile duct demonstrated dilation and some filling defects compatible with obstructing stones. This improved as the exam progressed suggesting stones were extracted. IMPRESSION: No complication.
[2016-06-20] MEDS: PERIDEX MT SCH ×2 (08:31→22:50)
[2016-06-20] MEDS ORDERED: XYLOCAINE-MPF 2% ONE (09:28)
[2016-06-20] MEDS ORDERED: LR 1,000 ML ONE (09:28)
[2016-06-20 09:39] LABS: INR 0.87
[2016-06-20] MEDS: LANTUS SUBQ SCH (10:14)
--- NOTE | 2016-06-20 13:43 | PROGRESS NOTE ---
DATE: 06/20/2016 Today Mr. Gold referred to be doing a lot better. He was actually sitting up in the recliner when I saw him. OBJECTIVELY: Vitals stable. Blood pressure is 113/66, pulse is 62, respirations 18, temperature 97.8 degrees.General: Mr. Gold is a 60-year-old male. He was sitting up in a recliner and not in any distress. HEENT: Mucosa is pink and moist. I did not see any icterus. Chest: Good air entry bilateral. No crepitations. No rhonchi. Cardiovascular: Regular rate and rhythm. Abdomen: Soft. Mildly tender around the right upper quadrant. There was a PATRICIO drain still in place. BUSINESS PLANNING ANALYST: Patient is alert and oriented x4. There is no focal neurological deficit. LABORATORY DATA: CBC is reviewed, completely unremarkable except for platelet which is steadily going down. It is 69,000 today. Chemistry reviewed. Chloride is 109 slightly improving. BUN is 36, is also slightly improving. Creatinine is down to 1.1. AST is 18, has normalized. ALT is 48, is going down and total bilirubin is also down to 2.79. Of note, patient has not had any fevers since June 18. ASSESSMENT: 1. Ascending cholangitis. The patient is status post ERCP yesterday. Extraction of stone was removed from the CBD and apparently the patient tolerated the procedure very well and there were not any complications after. We are going to observe the patient very closely for any complication post ERCP like pancreatitis post ERCP. 2. Cholelithiasis status post laparoscopic cholecystectomy. Today is day 3 postop. Patient still has the PATRICIO in place. Will be waiting for the surgeon to re-evaluate him at to make a decision if they want to remove it. 3. Acute kidney injury. This is improved. 4. Hyperchloremia. This is also slightly improving. 5. Severe sepsis. Patient continues to be on the current antibiotics. 6. Thrombocytopenia likely due to sepsis. We will continue observing this. 7. E. coli bacteremia, 2/2 blood culture positive which I think this is coming from the CBD infection. 8. Diabetes mellitus with a presenting A1c of 12.7. We are going to start the patient on insulin. 9. Hypoalbuminemia secondary to protein calorie malnutrition noted. So in general Mr. Gold is doing a whole lot better. We will continue with the current antibiotics. Liver function tests is downward trend. Creatinine has normalized and chloremia is also improving. We will start the patient on insulin both sliding scale and glargine for better control of his diabetes. We will also keep a very close eye on the platelet numbers. cc: MD Chucky Rayo MD
[2016-06-20] MEDS: MORPHINE IV PRN (19:17)
[2016-06-21] MEDS: D5 1/2 NS 1,000 ML IV SCH ×3 (01:26→10:39)
[2016-06-21 06:05] LABS: MANUAL DIFF NEEDED? NO
[2016-06-21 06:16] LABS: BASO% 0.2 % (0.0-0.8); EOS# 0.11 X1000 (0.0-0.7); EOS% 2.3 % (0.0-10.0); HEMOGLOBIN 10.9 g/dL (14.0-18.0); IMM GRAN# 0.02 X1000 (0.0-0.04); IMM GRAN% 0.4 % (0.0-0.5); LYMPH# 0.85 X1000 (1.2-3.4); LYMPH% 17.6 % (20.5-51.1); MCH 29.8 PG (27-31); MCHC 34.1 g/dL (33-37); MCV 87.4 FL (81-99); MONO# 0.33 X1000 (0.11-0.59); MONO% 6.8 % (1.7-9.3); MPV 11.8 FL (7.4-10.4); NEUT% 72.7 % (42.2-75.2); PLT 86 X1000 (130-400); RBC 3.66 XMIL (4.7-6.1)
[2016-06-21 06:27] LABS: AGAP 7; ALBUMIN 1.7 g/dL (3.5-5.0); ALKALINE PHOSPHATASE 248 U/L (32-122); BUN 19 mg/dL (8-22); CALCIUM 7.3 mg/dL (8.8-10.2); CHLORIDE 105 mmol/L (98-107); COSMO 278; GOT 16 U/L (10-34); GPT 38 U/L (10-44); POTASSIUM 2.9 mmol/L (3.5-5.1); SODIUM 137 mmol/L (136-145); TCO2 25 mmol/L (25-35); TOTAL BILIRUBIN 2.41 mg/dL (0.20-1.00); TOTAL PROTEIN 5.1 g/dL (6.3-8.3)
--- NOTE | 2016-06-21 07:35 | PROGRESS NOTE ---
DATE: 06/21/2016 SUBJECTIVE: The patient doing well with no major issues. PATRICIO drain had minimal output which was nonbilious. OBJECTIVE: VITAL SIGNS: Patient is currently afebrile. His vital signs have been stable.General: No acute distress. Cardiovascular: Regular rate and rhythm. Lungs: Grossly clear. Abdomen: Soft. Nondistended and appropriately tender to palpation. PATRICIO drain with non bilious output and removed. ASSESSMENT AND PLAN: A 60-year-old gentleman with a possible ascending cholangitis status post ERCP for common bile duct stone removal and status post laparoscopic cholecystectomy. Cholangitis. At this time, patient seems to be doing clinically well. He did have positive blood cultures which was likely related to his cholangitis. He is on antibiotics. Clinically, he is doing well. I think he can be discharged relatively soon but we will defer to the hospitalist service given his bacteremia as far as how long they want to do treatment. We will continue to follow with him and monitor him while he is in the hospital. My partner will follow with him over the weekend. cc: Chucky Nunez MD
[2016-06-21] MEDS: MERREM 1 GM in NS 50 ML IV SCH ×3 (07:50→20:55)
[2016-06-21] MEDS: HUMALOG SUBQ SCH ×4 (07:51→20:13)
[2016-06-21] MEDS ORDERED: KLOR-CON PO ONE (08:45)
[2016-06-21] MEDS ORDERED: HUMULIN 70/30 SUBQ ONE (09:49)
[2016-06-21] MEDS: PERIDEX MT SCH ×2 (10:37→20:56)
[2016-06-21] MEDS: LANTUS SUBQ SCH (10:40)
--- NOTE | 2016-06-21 11:07 | PROGRESS NOTE ---
DATE: 06/21/2016 SUBJECTIVE: Today, Mr. Gold referred to be doing fine. He denies any fever, any abdominal pain. The PATRICIO drain has been removed early this morning by our surgical team. OBJECTIVE: Vital signs: Blood pressure is 130/76, pulse was 69, respirations 18, temperature 98.5. The patient is saturating 95% on 2 L of oxygen. General: Mr. Gold is 60-year-old male who was in bed and he seems to be in no distress. HEENT: Mucosa is pink and moist. Anicteric and acyanotic. Chest: Good air entry bilaterally, no crepitations or rhonchi. Cardiovascular: Regular rate and rhythm. Abdomen: Soft, mildly tender in the right upper quadrant. The PATRICIO drain has been removed, and the site is covered with sterile dressing. The abdomen is also slightly distended with a suspicion of fluid shift. DAY CARE HOME PROVIDER: The patient is alert and oriented x4. There is no focal neurological deficit. LABORATORY DATA: WBC is 4.83, hemoglobin is 10.9, platelet count 86 which is coming up. Chemistry is reviewed. Potassium is 2.9. The rest of the chemistry is unremarkable. Bilirubin is down to 2.41. AST and ALT have normalized. Alkaline phosphatase is 248, slightly worsened. ASSESSMENT: 1. Ascending cholangitis. The patient is status post ERCP. Today is day 2. Extraction of stone-- was removed from the common bile duct during the procedure, and sphincterotomy was also done. The patient seems to be improving remarkably after the procedure. 2. Cholelithiasis status post laparoscopic cholecystectomy. Today is day 4 postop. PATRICIO drain has been removed. The patient is doing okay. 3. Acute kidney injury, resolved. We will, therefore, discontinue the IV hydration since the patient seems to be retaining some fluid in his abdomen, and we will encourage adequate oral hydration. 4. Hyperchloremia, resolved. 5. Severe sepsis secondary to ascending cholangitis. This is improved. 6. E. coli bacteremia, 2 out of 2 blood cultures positive. Subsequent blood culture done yesterday is still not ready yet. We are pending the result. 7. Thrombocytopenia likely due to sepsis. This is slightly improving now. 8. Diabetes mellitus with presenting A1c of 12.7. Fitness Center Attendant has been consulted for medication, and the nurses will also teach the patient how to give himself insulin. We are going to put the patient on 70/30 since he does not have any insurance to afford the glargine. I think when the patient is ready for discharge we can put him on metformin together with the insulin. 9. Hypoalbuminemia secondary to protein calorie malnutrition noted. 10.Hypokalemia. Will replace this. In general, I think Mr. Gold is clinically doing fine. We are going to discontinue the IV fluids and encourage oral hydration. I have started on GI soft diet. Will encourage the patient to sit up in a chair at least twice per day. Will have Physical Therapy to walk with the patient. We discussed the patient in IPOC today and will be referring him to the [facility] program for medication assistance. Anticipate the patient being discharged within 24-48 hours. cc: MD Chucky Rayo MD
--- NOTE | 2016-06-21 13:01 | PROGRESS NOTE ---
DATE: 06/21/2016 SUBJECTIVE: The patient states he feels okay. He had a recent ERCP on 06/17/2016 for choledocholithiasis status post laparoscopic cholecystectomy. Findings shows choledocholithiasis. Stone was removed after sphincterotomy. The patient reports only mild pain today. OBJECTIVE: Vital signs: Temperature 98.3, pulse 70, respirations 18, blood pressure 118/71. General: The patient is awake and alert. He is lying in bed in no acute distress. Respiratory: Lung sounds essentially clear bilaterally. Cardiovascular: Regular rate and rhythm. Abdomen: Soft, mildly tender postoperatively. PATRICIO drain has been removed and there is a dressing intact, no noted drainage. LABORATORY: Hematology: White count 4.83, hemoglobin 10.9, hematocrit 32.0, MCV 87.4, platelets 86. Chemistry: Sodium 137, potassium 2.9, chloride 105, CO2 of 25, BUN 19, creatinine 0.6. Total bilirubin 2.41, AST 16, ALT 38, alkaline phosphatase 248. ASSESSMENT AND PLAN: 1. Ascending cholangitis status post cholecystectomy. 2. Choledocholithiasis status post ERCP with stone removal and sphincterotomy. 3. Sepsis secondary to ascending cholangitis. This is improving. Continues to be on antibiotics. 4. Diabetes. He has had a director social welfare consult, and they are working on starting him on insulin before discharge, and our plan is to continue supportive care. GI will be available as needed. His diet was advanced to a GI soft diet earlier today. Follow up in our office after discharge. A stent was not placed during the ERCP. We will be available further as needed. Dictated by MAHAMED Liao for Ivan Pink MD cc: MAHAMED Gonzalez MD Matthew L. Figh, MD
[2016-06-22] MEDS: MERREM 1 GM in NS 50 ML IV SCH ×2 (00:06→06:14)
[2016-06-22] MEDS: HUMALOG SUBQ SCH ×4 (06:30→20:39)
[2016-06-22 06:43] LABS: MANUAL DIFF NEEDED? NO
[2016-06-22 06:52] LABS: BASO% 0.2 % (0.0-0.8); EOS# 0.09 X1000 (0.0-0.7); EOS% 1.7 % (0.0-10.0); HEMATOCRIT 30.5 % (42.0-52.0); HEMOGLOBIN 10.3 g/dL (14.0-18.0); IMM GRAN# 0.05 X1000 (0.0-0.04); IMM GRAN% 0.9 % (0.0-0.5); LYMPH# 1.07 X1000 (1.2-3.4); MCH 29.5 PG (27-31); MCHC 33.8 g/dL (33-37); MCV 87.4 FL (81-99); MONO% 7.5 % (1.7-9.3); NEUT% 69.7 % (42.2-75.2); PLT 105 X1000 (130-400); RBC 3.49 XMIL (4.7-6.1)
[2016-06-22 07:19] LABS: AGAP 9; ALBUMIN 1.7 g/dL (3.5-5.0); ALKALINE PHOSPHATASE 261 U/L (32-122); BUN 17 mg/dL (8-22); CALCIUM 7.2 mg/dL (8.8-10.2); CHLORIDE 101 mmol/L (98-107); COSMO 281; GOT 12 U/L (10-34); GPT 27 U/L (10-44); POTASSIUM 3.8 mmol/L (3.5-5.1); SODIUM 135 mmol/L (136-145); TCO2 25 mmol/L (25-35); TOTAL BILIRUBIN 2.11 mg/dL (0.20-1.00); TOTAL PROTEIN 4.2 g/dL (6.3-8.3)
--- NOTE | 2016-06-22 10:08 | PROGRESS NOTE ---
DATE: 06/22/2016 SUBJECTIVE: Some discomfort but improving. OBJECTIVE: Vital signs: No fevers. Pulse 68. Blood pressure 117/65. Oxygen saturation 98% on room air. General: He is alert. There is no jaundice. Cardiovascular: Normal rate, regular rhythm. Abdomen: Soft, appropriately tender. Incisions are all healing well. LABS: I reviewed his labs. White count is normal at 5, hematocrit is stable at 30. T-bili is downtrending at 2.11. His glucose is 232. His transaminases are normal at 12 and 27. Blood cultures, repeat, have no growth x48 hours. ASSESSMENT AND PLAN: A 60-year-old male now with ascending cholangitis. He has had ERCP and laparoscopic cholecystectomy. He is doing okay. He is on antibiotics for bacteremia. Will discuss transitioning these to oral, but will keep him on IV for today. Otherwise, out of bed, ambulating, and we will gradually begin advancing his diet as he tolerates. cc: MD Chucky Brooks MD
[2016-06-22] MEDS ORDERED: INSULIN PEN NEEDLES ONE (10:13)
[2016-06-22] MEDS: GLUCOPHAGE PO SCH ×2 (11:51→16:47)
[2016-06-22] MEDS: HUMULIN 70/30 SUBQ SCH (11:56)
[2016-06-22] MEDS: PERIDEX MT SCH ×2 (11:59→21:05)
[2016-06-22] MEDS: LEVAQUIN PO SCH (12:02)
--- NOTE | 2016-06-22 14:09 | PROGRESS NOTE ---
DATE: 06/22/2016 Today Mr. Gold referred to be doing a lot better. He was actually sitting up in the chair when I saw him. OBJECTIVE: Vital signs: Blood pressure is 104/60, pulse of 71, respirations 18, temperature is 98.4 degrees. General: Mr. Gold is a 60-year-old, male. He was sitting up in the chair. Not in any distress. HEENT: Mucosa is pink and moist. Anicteric. Acyanotic. Neck: Supple. Chest: Clear. Cardiovascular: Regular rate and rhythm. Abdomen: Soft. Mildly tender around the surgical areas. Bowel sounds were present. There is no hepatosplenomegaly and there is not any guarding. No rebound. DIANETICIST: Patient is alert and oriented x4. Extremities: No pedal edema. LABORATORY DATA: WBC is 5.36, hemoglobin is 10.3, platelet count of 105,000. Chemistry reviewed, completely normal. Glucose is slightly up to 261. ASSESSMENT: 1. Ascending cholangitis likely from E. coli. The patient is status post ERCP. Today is day 3. There was also a sphincterectomy and extraction of the CBD stone done during the procedure. 2. Cholelithiasis status post laparoscopic cholecystectomy. Today is day 5 postop. 3. Acute kidney injury resolved. 4. Severe sepsis secondary to ascending cholangitis improved. 5. E. coli bacteremia which we think is coming from the ascending cholangitis. Patient is status post another blood culture done on 06/20/2016 which was completely negative. We plan to treat the patient for a total of 14 days of total antibiotics and today is day 5 of antibiotics. 6. Diabetes mellitus with presenting A1c of 12.7. Patient is currently on Humulin 70/30 25 units in the morning. Continue metformin 500 b.i.d. 7. Protein calorie malnutrition noted. 8. Hypokalemia resolved. So in general, from medical standpoint, Mr. Gold is okay to go home. He is going to be on levofloxacin for additional 9 days for a total for 14 days and he is going to be on metformin and insulin for glucose control. We have ordered urine protein creatinine ratio and microalbumin to see if he will benefit from PO inhibitor protection of the kidney in a diabetic patient. cc: MD Chucky Rayo MD
[2016-06-22 16:21] LABS: PROTEIN CREAT RATIO 0.5; UR PROT RANDOM 33.3 mg/dL
[2016-06-23] MEDS: HUMALOG SUBQ SCH ×2 (06:20→11:09)
[2016-06-23] MEDS: GLUCOPHAGE PO SCH (08:13)
[2016-06-23] MEDS: LEVAQUIN PO SCH (08:13)
[2016-06-23] MEDS: PERIDEX MT SCH (08:16)
[2016-06-23] MEDS: HUMULIN 70/30 SUBQ SCH (08:18)
[2016-06-23 09:48] LABS: HEMOGLOBIN 10.1 g/dL (14.0-18.0); MCH 29.6 PG (27-31); MCHC 33.7 g/dL (33-37); MPV 11.3 FL (7.4-10.4); RBC 3.41 XMIL (4.7-6.1)
[2016-06-23 10:16] LABS: AGAP 7; ALBUMIN 1.6 g/dL (3.5-5.0); ALKALINE PHOSPHATASE 277 U/L (32-122); BUN 14 mg/dL (8-22); CALCIUM 7.3 mg/dL (8.8-10.2); CHLORIDE 101 mmol/L (98-107); COSMO 275; GOT 13 U/L (10-34); GPT 20 U/L (10-44); POTASSIUM 3.9 mmol/L (3.5-5.1); SODIUM 136 mmol/L (136-145); TCO2 28 mmol/L (25-35); TOTAL BILIRUBIN 1.36 mg/dL (0.20-1.00); TOTAL PROTEIN 4.9 g/dL (6.3-8.3)
[2016-06-23 11:24] VITALS: BP 112/60
--- NOTE | 2016-06-23 15:18 | PROGRESS NOTE ---
DATE: 06/23/2016 SUBJECTIVE: Feels well. Pain is practically resolved. He is tolerating a diet. He is having bowel function. No nausea or vomiting. OBJECTIVE: Vital signs: No fevers. No tachycardia. Blood pressure 112/60. Abdomen: Soft. Appropriately tender. Incision is clean, dry, intact. LABS: Reviewed his labs. White count is normal at 7. Hematocrit is stable at 30. Bilirubin is down to 1.36. Transaminases are normal. Alkaline phosphatase is stable but mildly elevated. Creatinine is normal at 0.6. Glucose is 149. ASSESSMENT AND PLAN: This is a 60-year-old male admitted with cholangitis status post cholecystectomy and endoscopic retrograde cholangiopancreatography. He is doing well. He does have bacteremia and Dr. Belle has made arrangements for him to have outpatient follow up for his diabetes and for oral Levaquin which the E. coli is sensitive to. From a surgical standpoint, he is fine to go home. He can see Dr. Nunez back in the next 1-2 weeks. cc: MD Chucky Brooks MD
--- NOTE | 2016-06-23 16:39 | PROGRESS NOTE ---
DATE: 06/23/2016 SUBJECTIVE: Today Mr. Gold referred to be doing fine. He is tolerating his diet. He has had bowel movement and he has been moving around. OBJECTIVE: Vital signs: Blood pressure is 112/60, temperature is 98.3 degrees , pulse 79, respiration is 20. General: Mr. Gold is a 60-year-old male. He was sitting up in the chair. He was not in any distress. HEENT: Mucosa is pink and moist. Anicteric and acyanotic. Neck: Supple. Chest: Clear. Cardiovascular: Regular rate and rhythm. Abdomen: Soft. Mildly tender around the laparoscopic holes. The PATRICIO drain has been removed. [employer]: Patient is alert and oriented. LABORATORY DATA: WBC 7.70, hemoglobin is 10.1, platelet count of 168,000. Chemistry is reviewed, completely unremarkable. ASSESSMENT: 1. Ascending cholangitis from Escherichia coli, status post endoscopic retrograde cholangiopancreatography. Today is day 4. Sphincteric tummy and extraction of common bile duct stone was done. Patient is doing a whole lot better. The liver enzymes have normalized and total bilirubin is down to 1.36. 2. Cholelithiasis, status post laparoscopic cholecystotomy. Today is day 6 postop. 3. Acute kidney injury resolved. 4. Severe sepsis secondary to ascending cholangitis, improved. 5. Escherichia coli bacteremia. Subsequent blood cultures have been negative. Patient is going to be on Levofloxacin for a total of 14 days. A prescription has been written. 6. Diabetes mellitus with presenting A1c of 12.7. Patient is currently on 70/30 , 25 units in the morning with metformin and he is tolerating that. 7. Protein calorie malnutrition. 8. Generalized deconditioning. PLAN: In general, I think from a medical standpoint, Ms. Gold is okay to be discharged. A prescription has been written for levofloxacin; also insulin and metformin. He has been advised to continue with the star program and follow up strictly with diet recommendations and comply with medications. cc: MD Chucky Rayo MD MTDD
--- NOTE | 2016-06-26 06:14 | DISCHARGE SUMMARY ---
ADMISSION DATE: 06/17/2016 DISCHARGE DATE: 06/23/2016 ADMITTING DIAGNOSIS: Choledocholithiasis with possible cholangitis. DISCHARGE DIAGNOSES: 1. Status post laparoscopic cholecystectomy. 2. Status post endoscopic retrograde cholangiopancreatography. 3. Bacteremia likely secondary to cholangitis. ADMITTING PHYSICIAN: Chucky Nunez MD. CONSULTANTS: The hospitalist service for medical management and Dr. Shaw with for ERCP. PROCEDURES: 1. On 06/17/2016, the patient underwent a laparoscopic cholecystectomy. 2. On 06/19/2016, the patient underwent ERCP. BRIEF HISTORY AND COURSE OF STAY: Patient is a 60-year-old, male initially presenting with abdominal pain and jaundice. He was found to have choledocholithiasis. He was admitted and started on antibiotics. He underwent the cholecystectomy during that time, and it was felt that he had a large filling defect and we were unable to remove laparoscopically. We kept the patient on antibiotics and consulted Gastroenterology who performed an ERCP which he tolerated well. They removed the stone to place stents. The patient also developed bacteremia for which he was continued on his antibiotics. He continued to progress on 06/23/2016, the patient was tolerating p.o., doing well. Otherwise, safe to be discharged home. He was given a prescription for antibiotics to continue given his bacteremia. DISCHARGE CONDITION: Stable. DISPOSITION: Patient to be discharged home. FOLLOWUP: The patient told to follow up with me in 1-2 weeks. Patient is also given a means for followup for his diabetes. He was given prescriptions for metformin. cc: Chucky Nunez MD
== END 2016-06-23 14:57 | disposition home health service (06) ==
LOC: P.ED 20:44 → 4N 06-17 02:57
PROVIDERS: ADMIT Surgery; ATTEND Surgery
PROC: EN.ERCP (2016-06-19 16:24)